=== PATIENT | female | born 1970 | race Caucasian/White ===

== ENCOUNTER → 2023-09-18 07:24 | Outpatient (BNVA) | payer OTHER, SELFPAY | PROVIDERS: Visit Provider Internal Medicine Gastroenterology ==

== ENCOUNTER 2023-11-15 09:46 | Outpatient (REF) | payer OTHER, SELFPAY ==
--- NOTE | ~2023-11-15 | FL_ITS ---
EXAMINATION: XR FLUOROSCOPY BARIUM SWALLOW WITH AIR CLINICAL INFORMATION: Reflux. Epigastric pain. COMPARISON: None TECHNIQUE: Fluoroscopic air contrast barium swallow examination was performed utilizing standard techniques with thin and thick barium and effervescent granules. Numerous spot images were obtained. FINDINGS: Lateral cine images of the oropharynx and hypopharynx demonstrate normal swallow mechanism with normal epiglottic inversion and soft palate elevation. There was trace tracheal penetration. No glottic or subglottic aspiration identified. No nasopharyngeal reflux present. Hypopharyngeal structures appear normal without evidence of mass or diverticulum. There was no significant cricopharyngeal achalasia. Dual and single contrast images of the esophagus demonstrate normal caliber, contour. Granular mucosal pattern present in the distal one third to one half of the esophagus. This may suggest erosive esophagitis. No evidence of stricture, mass, or large ulcerations identified. Esophageal peristalsis is moderately disorganized. A small type I hiatal hernia is present. Significant gastroesophageal reflux is seen up to the thoracic inlet. Dual contrast and single contrast images of the stomach demonstrated a normal contour. The gastric rugal folds have a thickened appearance. No masses or ulcerations are seen. Contrast freely passed into the gastric antrum and duodenal bulb without delay. Single and air-contrast images of the duodenal bulb demonstrate no abnormality. The duodenal sweep has a normal appearance, course, and mucosal fold appearance. No malrotation. The imaged proximal jejunum has a normal fold pattern and caliber. FLUOROSCOPY TIME: 5.0 minutes Number of Spot Images: 11 Number of Cine: 16 DOSE AREA PRODUCT: 2242 uGy-m2 (microgray-meter squared) FL/FL barium swallow with air IMPRESSION: 1. Small type I hiatal hernia. 2. Moderate to severe esophageal reflux. 3. Granular mucosa of the distal esophagus, query mild reflux esophagitis. 4. Esophageal dysmotility. 5. Trace laryngeal penetration. No aspiration identified. 6. Thickened appearance of the gastric rugal folds that likely represents gastritis. This procedure was performed by Juan Perry PA-C, and supervised by Dr. Hutchison
== END 2023-11-15 09:47 | disposition home or self-care (01) ==
LOC: HO.XRAY 09:46
PROVIDERS: Visit Provider Internal Medicine Gastroenterology
DX: R07.9 Chest pain, unspecified (principal)
CPT/HCPCS: 74221

== ENCOUNTER → 2023-11-15 09:48 | Outpatient (BNV) | payer OTHER, SELFPAY | PROVIDERS: Visit Provider Physician Assistant Surgical | DX: K21.9 Gastro-esophageal reflux disease without esophagitis (principal); R10.13 Epigastric pain | CPT/HCPCS: 74246 ==

== ENCOUNTER 2023-11-30 13:26 | Outpatient (AMB) | payer OTHER, SELFPAY ==
--- NOTE | 2023-11-30 13:30 | MHC.OFFVIS ---
Vital Signs 11/30/23 13:43 Height 5 ft 2 in Weight 129 lb BMI 23.6 BP 105/64 Blood Pressure Location Lt brachial Position Sitting Pulse 71 Intake Visit Reasons: Barium Swallow results Intake Note: Patient follow up for Barium Swallow results Patient cc: abdominal pain and some swallowing problems with solid and liquid, ansd constipation. Manager Clinical Research Required: No Accompanied by: Spouse Allergies No Known Allergies Allergy (Verified 11/30/23 13:37) Medication List - Last Reconciled 11/30/23 by Jayesh Kaminski MD albuterol sulfate 90 mcg/actuation (Ventolin HFA) inhalation atorvastatin 20 mg PO DAILY cholecalciferol (vitamin D3) 1,250 mcg PO QWEEK estradiol 0.01%(0.1mg/gram) 1 appful vaginal DAILY famotidine 20 mg PO BID 30 days fluticasone prp-sod.chl,bicarb 50 mcg- 0.9 % sprays intranasal .twice a day levothyroxine 75 mcg PO DAILY multivitamin 1 tab PO DAILY sennosides-docusate sodium 8.6-50 mg (Senna Plus) 1 tab-cap PO BEDTIME 30 days HPI HPI Barium Swallow results: Details: FU GI clinic visit for this 53 YF for evaluation of chest pain and constipation. Pt is referred by Dr Gladys Daigle, [facility], [facility], [address], 3rd floor, [facility] [address] ([phone]) LABS IN [facility]: Outside labs from 02/2022 were reviewed - Normal CBC, Chem Panel and elevated TSH 9.17 with normal Free T4 IMAGING STUDIES: 11/15/23 BARIUM SWALLOW SHOWED: 1. Small type I hiatal hernia. 2. Moderate to severe esophageal reflux. 3. Granular mucosa of the distal esophagus, query mild reflux esophagitis. 4. Esophageal dysmotility. 5. Trace laryngeal penetration. No aspiration identified. 6. Thickened appearance of the gastric rugal folds that likely represents gastritis. ENDOSCOPIC STUDIES: Never had an EGD, Colonoscopy at [facility] in 2019 TODAY'S VISIT: Silvano presents in the office as a new patient for constipation and chest pains. CC: Pains in the chest, not sure if it is acid reflux. She takes omeprazole and it seems to help her. Pt is accompanied by her She has been taking Omeprazole 20 mg twice a day for the past few days with some improvement in symptoms Famotidine was not helpful and she stopped taking it. Pt complains of intermittent chest pain - sometimes daily. Pain feels like pressure - sometimes associated with nausea Denies association of chest pain with exertion or association with SOB, dizziness or palpitations Denies association with specific foods. Pain can last for hours and resolves Tried Omeprazole once a day for a month without improvement in symptoms Intermittent dysphagia with solids and liquids in the cervical area - resolves with drinking water. Chronic constipation x years. Has a BM every other day - hard stools with straining. Intermittent rectal bleeding - attributes to hemorrhoids Colonoscopy at [facility] in 2019. Patient denies heartburn, change in appetite or weight. Patient denies major cardiac or pulmonary problems, loud snoring or sleep apnea Denies problems with anesthesia in the past. Denies being on chronic anticoagulation. Patient denies known family history of colon polyps, colon cancer or other GI malignancies. Brother has GERD. and has 3 children Originally from [facility] Surgical History Hx of colonoscopy Social History (Updated 11/30/23 @ 13:38 by Ann Donald) Household Members: Family Alcohol intake: never Patient Tobacco Use Status: Never used Tobacco Review of Systems Const All systems reviewed & are unremarkable except as noted in HPI and below Physical Exam Vital Signs: Last Vital Signs Pulse 71 11/30/23 13:43 BP 105/64 11/30/23 13:43 BMI result Body Mass Index 23.6 Const General: healthy appearing and no acute distress Nutritional Appearance: average body habitus Orientation/consciousness: patient oriented x3 Limitations: language barrier HEENT Head: Yes normal to inspection Ears: hearing grossly normal bilaterally Eyes Sclerae: sclerae normal Pupils: Equal, round and reactive pupils present Neck Neck: Yes normal visual inspection Chest Chest palpation & inspection: normal inspection of the chest Resp Effort & Inspection: normal respiratory effort Auscultation: clear to auscultation bilaterally Cardio Palpation: normal PMI Rate: regular rate Rhythm: regular rhythm Heart sounds: S1 normal heart sound present, S2 normal heart sound present and no murmurs GI Palpation (GI): Soft to palpation, nontender and No hepatosplenomegaly present Auscultation: normal bowel sounds Rectal Exam - Female: deferred Skin General skin exam: no rashes or lesions noted Neuro General: patient oriented x3, gait normal and moves all extremities Cranial nerves: Yes Equal, round and reactive pupils present Psych Appearance: grossly normal Mental Status: mental status grossly normal Assessment & Plan Assessment & Plan (1) Chest pain: Code(s): R07.9 - Chest pain, unspecified Category: Medical (2) Chronic constipation: Code(s): K59.09 - Other constipation Category: Medical Plan 53 YF with intermittent chest pain - sometimes daily. Tried Omeprazole once a day for a month without improvement in symptoms Intermittent dysphagia with solids and liquids in the cervical area - resolves with drinking water. Chronic constipation x years. Has a BM every other day - hard stools with straining. Intermittent rectal bleeding - attributes to hemorrhoids Colonoscopy at [facility] in 2019. Chest pain is likely due to GERD with esophageal spasm Pt advised to schedule a barium swallow Start Famotidine for GERD and Senna plus for constipation Pt advised to schedule an urgent EGD due to persistent symptoms associated with wt loss Colonoscopy scheduled on 12/25/23 FU in 6 week Medications: Changed From sennosides-docusate sodium 8.6-50 mg (Senna Plus) 1 tab-cap PO BEDTIME 30 days 30 caps 3RF K59.09 - Other constipation To sennosides-docusate sodium 8.6-50 mg (Senna Plus) 2 tab-caps (2 x 8.6-50 mg) PO BEDTIME 30 days 60 caps 3RF K59.09 - Other constipation Coding Level of Care Code Est Pt Level 3 (54247) Diagnoses Chest pain R07.9 Chronic constipation K59.09 Time Spent (min) 18
[2023-11-30 13:43] VITALS: BP 105/64; PULSE 71; BMI 23.6
== END 2023-11-30 14:59 | disposition home or self-care (01) ==
PROVIDERS: PCP Internal Medicine; Visit Provider Internal Medicine Gastroenterology
DX: R07.9 Chest pain, unspecified (principal); K59.09 Other constipation
CPT/HCPCS: 99213

== ENCOUNTER → 2023-11-30 13:26 | Outpatient (BNVA) | payer OTHER, SELFPAY | PROVIDERS: Visit Provider Internal Medicine Gastroenterology | DX: K59.09 Other constipation (principal); R07.9 Chest pain, unspecified | CPT/HCPCS: 99212 ==

== ENCOUNTER 2023-12-04 14:14 | Day surgery (SDC) | payer OTHER, SELFPAY ==
--- NOTE | 2023-12-01 10:43 | HO.ANESPROP2 ---
Documented by User: Dariela Chance NP 12/01/23 10:50 HPI - Anesthesia Eval Consult details Narrative: 53yo F for Upper Endoscopy PMF Active Problems Active Problems: All Active Problems Thyroid disease (Acute) Asthma (Acute) Chronic constipation (Acute) Chest pain (Acute) Low back pain (Acute) Surgical History Surgical History Hx of colonoscopy Social History Social History (Updated 11/30/23 @ 13:38 by Ann Donald) Household Members: Family Alcohol intake: never Patient Tobacco Use Status: Never used Tobacco Use of substances other than those prescribed or required for medical reasons: No Are you DNR?: No Advance Directives: No Advance Directives Information Provided: Yes Meds Allergies Allergy/AdvReac Type Severity Reaction Status Date / Time No Known Allergies Allergy Verified 11/30/23 13:37 Home Medications ?Medication ?Instructions ?Recorded ?Confirmed ?Last Taken ?Type albuterol sulfate 90 mcg/actuation inhalation 09/18/23 11/30/23 Unknown History aerosol inhaler (Ventolin HFA) atorvastatin 20 mg tablet 20 mg PO DAILY 09/18/23 11/30/23 Unknown History cholecalciferol (vitamin D3) 1,250 1,250 mcg PO QWEEK 09/18/23 11/30/23 Unknown History mcg (50,000 unit) capsule estradiol 0.01% (0.1 mg/gram) 1 appful vaginal DAILY 09/18/23 11/30/23 Unknown History vaginal cream fluticasone prop.50 mcg spray intranasal .twice a day 09/18/23 11/30/23 Unknown History spray,suspen-sod.chloride 0.9% nasal spray kit levothyroxine 75 mcg capsule 75 mcg PO DAILY 09/18/23 11/30/23 Unknown History multivitamin 1 tab PO DAILY 09/18/23 11/30/23 Unknown History Assessment and Plan Assessment Anesthesia Assessment: Chart Reviewed Documented by User: Michelle Martinez MD 12/04/23 15:14 PMFSH Family History Family history of problems with anesthesia: No Surgical History Surgical History Hx of colonoscopy History of Problems with Anesthesia: No Social History Social History (Updated 11/30/23 @ 13:38 by Ann Donald) Household Members: Family Alcohol intake: never Patient Tobacco Use Status: Never used Tobacco Use of substances other than those prescribed or required for medical reasons: No Are you DNR?: No Advance Directives: No Advance Directives Information Provided: Yes Meds Allergies Allergy/AdvReac Type Severity Reaction Status Date / Time No Known Allergies Allergy Verified 11/30/23 13:37 Home Medications ?Medication ?Instructions ?Recorded ?Confirmed ?Last Taken ?Type albuterol sulfate 90 mcg/actuation inhalation 09/18/23 11/30/23 Unknown History aerosol inhaler (Ventolin HFA) atorvastatin 20 mg tablet 20 mg PO DAILY 09/18/23 11/30/23 Unknown History cholecalciferol (vitamin D3) 1,250 1,250 mcg PO QWEEK 09/18/23 11/30/23 Unknown History mcg (50,000 unit) capsule estradiol 0.01% (0.1 mg/gram) 1 appful vaginal DAILY 09/18/23 11/30/23 Unknown History vaginal cream fluticasone prop.50 mcg spray intranasal .twice a day 09/18/23 11/30/23 Unknown History spray,suspen-sod.chloride 0.9% nasal spray kit levothyroxine 75 mcg capsule 75 mcg PO DAILY 09/18/23 11/30/23 Unknown History multivitamin 1 tab PO DAILY 09/18/23 11/30/23 Unknown History Exam Airway Mallampati Class: II TM Dist: >3cm Neck ROM: Full Heart: rrr Lungs: cta Assessment and Plan Assessment Anesthesia Assessment: Anesthesia Plan Discussed Final Anesthetic Review Family History of Problems with Anesthesia: No History of Problems with Anesthesia: No NPO: Yes ASA Class: II Final Preanesthetic Review: No Changes in Pt Med Stat, Meds/Allgs Chart Reviewed and Consent Obtained/Reviewed Patient Risk: Low Procedure Risk: Intermediate Anesthetic Plan Anesthetic Plan: MAC: Disposition: Standard PACU
[2023-12-04 14:23] VITALS: BP 120/79; PULSE 70; RESP 16; TEMP 36.4; O2SAT 99; BMI 24.1
[2023-12-04] MEDS: Lactated Ringers 1,000 ML 100 ML IVCONT (14:37)
--- NOTE | 2023-12-04 15:10 | MHC.SHP ---
Pre-Procedural Eval Section A - 24 Hr Update-Section A only Date of Service: 12/04/23 The patient is an INPATIENT: No Changes since office visit: Yes Patient answered all questions; No Cold of Flu in the past 2 weeks, No New Medical Problems and No Changes in Medication The patient has been examined within 24 hours of the surgical procedure. The History & Physical has been completed within 30 days and I have reviewed it.: Yes Section B - Complete if H&P > 30 days Chief Complaint: Anemia, unspecified Allergies: Allergies Allergy/AdvReac Type Severity Reaction Status Date / Time No Known Allergies Allergy Verified 11/30/23 13:37 Plan Diagnosis/Plan: Change (Proceed with EGD) I have reviewed the history and physical and performed a pertinent physical examination on my patient. No changes have occurred unless specified. Time Spent With Patient Time: Total time managing care of this patient today ____ minutes.
--- NOTE | 2023-12-04 15:47 | W.PM.OPN ---
Operative Note Operative Note Date of Service: 12/04/23 Narrative: FLEXIBLE TRANSORAL UPPER GASTROINTESTINAL ENDOSCOPY WITH BIOPSIES Pre-op diagnosis: GERD, weight loss and abnormal barium swallow Post-op diagnosis: GERD, Gastritis, duodenal bulb nodules Endoscopist:? Jayesh Kaminski MD Anesthesia:?MAC UPPER ENDOSCOPY Consent: Indications for the procedure and potential complications of bleeding, perforation, reaction to medications and missed diagnosis were discussed with the patient and informed consent was obtained. Instrument: Olympus GIF H 190 mid size upper endoscope Monitoring: Vital signs and clinical assessment, continuous EKG monitoring, Pulse oximetry, Carbon Dioxide monitoring and blood pressure monitoring were done throughout the procedure. Procedure: The patient was placed in the left lateral decubitis position and pre-procedure medications were administered and a bite block was placed. The endoscope was inserted into the mouth and advanced under direct vision to the third part of duodenum. A careful inspection was made as the upper endoscope was withdrawn including a retroflexed examination of the proximal stomach; Findings and interventions are described below. 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 Small hiatal hernia 35 to 36 cms. Minimal esophagitis at GE junction and no Alfaro's Stomach: Moderate diffuse gastric erythema - biopsies were obtained from the gastric body and antrum. Grade 2 flap valve on retroflexed examination of the cardia. Duodenum: Multiple 3-4 mm nodules in the roof of proximal bulb - biopsied. Normal mucosa in the descending duodenum - biopsies were obtained to check for celiac sprue. Prominent duodenal papilla - biopsies obtained from the base of the papilla Intervention: Biopsies as noted above Impression and Post Procedure Diagnosis: Endoscopy Findings: ESOPHAGUS: Small hiatal hernia with minimal esophagitis at GE junction STOMACH: Moderate diffuse gastritis - biopsies obtained from the gastric antrum and body.. DUODENUM: Multiple 3-4 mm nodules in the roof of proximal bulb - likely hyperplasia of Portia's glands. Prominent duodenal papilla - biopsied. Normal mucosa in the descending duodenum - biopsies were obtained to check for celiac sprue. Plan: Pt has a FU appointment on 01/18/[address] Kaminski. Above findings were reviewed with the patient and relevant handouts were given and the discharge area. BIOPSIES SHOWED: A. Small bowel, biopsy: Small intestinal mucosa within normal limits; negative for celiac disease. B. Duodenum, papilla, biopsy: Mixed small intestinal and foveolar mucosa with smooth muscle, consistent with papilla sampling; negative for dysplasia or malignancy. C. 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 D. Stomach, antrum, biopsy: Antral-type mucosa with moderate chronic inactive inflammation; no Helicobacter organisms seen. E. Stomach, body, biopsy: Oxyntic mucosa with mild chronic inactive inflammation; no Helicobacter organisms seen.
[2023-12-04 15:51] VITALS: BP 99/62; PULSE 67; RESP 16; TEMP 36.2; O2SAT 100
[2023-12-04 16:06] VITALS: BP 117/84; PULSE 56; RESP 16; TEMP 37.1; O2SAT 96
== END 2023-12-04 16:45 | disposition home or self-care (01) ==
PROVIDERS: Visit Provider Internal Medicine Gastroenterology
PROC: 0DJ08ZZ Inspection of Upper Intestinal Tract, Via Natural or Artificial Opening Endoscopic (ICD-10-PCS; CPT 43235; principal; 2023-12-04 15:40)
DX: K21.00 Gastro-esophageal reflux disease with esophagitis, without bleeding (principal); R63.4 Abnormal weight loss; K29.70 Gastritis, unspecified, without bleeding; K44.9 Diaphragmatic hernia without obstruction or gangrene; K31.89 Other diseases of stomach and duodenum
CPT/HCPCS: 43239; 88305; 88313; 88342; J2704

== ENCOUNTER 2023-12-25 08:23 | Day surgery (SDC) | payer OTHER, SELFPAY ==
--- NOTE | 2023-12-22 09:53 | HO.ANESPROP2 ---
Documented by User: Dariela Chance NP 12/22/23 09:54 HPI - Anesthesia Eval Consult details Narrative: 53yo F for Colonoscopy s/p EGD 11/2023 with [facility] PMFSH Active Problems Active Problems: All Active Problems Thyroid disease (Acute) Asthma (Acute) Chronic constipation (Acute) Chest pain (Acute) Low back pain (Acute) Past Medical History Medical History (Updated 12/25/23 @ 09:59 by Thuy Vega RN) Asthma Hypothyroid Family History Family history of problems with anesthesia: No Surgical History Surgical History (Updated 12/25/23 @ 09:58 by Thuy Vega RN) Hx of esophagogastroduodenoscopy Hx of colonoscopy History of Problems with Anesthesia: No Social History Social History (Updated 11/30/23 @ 13:38 by Ann Donald) Household Members: Family Alcohol intake: never Patient Tobacco Use Status: Never used Tobacco Are you DNR?: No Advance Directives: No Advance Directives Information Provided: Yes Nutrition Risks: No Nutritional Risk Meds Allergies Allergy/AdvReac Type Severity Reaction Status Date / Time No Known Allergies Allergy Verified 12/25/23 09:58 Home Medications ?Medication ?Instructions ?Recorded ?Confirmed ?Last Taken ?Type albuterol sulfate 90 mcg/actuation inhalation 09/18/23 11/30/23 Unknown History aerosol inhaler (Ventolin HFA) atorvastatin 20 mg tablet 20 mg PO DAILY 09/18/23 11/30/23 Unknown History cholecalciferol (vitamin D3) 1,250 1,250 mcg PO QWEEK 09/18/23 11/30/23 Unknown History mcg (50,000 unit) capsule estradiol 0.01% (0.1 mg/gram) 1 appful vaginal DAILY 09/18/23 11/30/23 Unknown History vaginal cream fluticasone prop.50 mcg spray intranasal .twice a day 09/18/23 11/30/23 Unknown History spray,suspen-sod.chloride 0.9% nasal spray kit levothyroxine 75 mcg capsule 75 mcg PO DAILY 09/18/23 11/30/23 Unknown History multivitamin 1 tab PO DAILY 09/18/23 11/30/23 Unknown History Assessment and Plan Assessment Anesthesia Assessment: Chart Reviewed Final Anesthetic Review Family History of Problems with Anesthesia: No History of Problems with Anesthesia: No Documented by User: Michelle Martinez MD 12/25/23 10:19 PMF Past Medical History Medical History (Updated 12/25/23 @ 09:59 by Thuy Vega, RN) Asthma Hypothyroid Surgical History Surgical History (Updated 12/25/23 @ 09:58 by Thuy Vega RN) Hx of esophagogastroduodenoscopy Hx of colonoscopy Social History Social History (Updated 11/30/23 @ 13:38 by Ann Donald) Household Members: Family Alcohol intake: never Patient Tobacco Use Status: Never used Tobacco Are you DNR?: No Advance Directives: No Advance Directives Information Provided: Yes Nutrition Risks: No Nutritional Risk Meds Allergies Allergy/AdvReac Type Severity Reaction Status Date / Time No Known Allergies Allergy Verified 12/25/23 09:58 Home Medications ?Medication ?Instructions ?Recorded ?Confirmed ?Last Taken ?Type albuterol sulfate 90 mcg/actuation inhalation 09/18/23 11/30/23 Unknown History aerosol inhaler (Ventolin HFA) atorvastatin 20 mg tablet 20 mg PO DAILY 09/18/23 11/30/23 Unknown History cholecalciferol (vitamin D3) 1,250 1,250 mcg PO QWEEK 09/18/23 11/30/23 Unknown History mcg (50,000 unit) capsule estradiol 0.01% (0.1 mg/gram) 1 appful vaginal DAILY 09/18/23 11/30/23 Unknown History vaginal cream fluticasone prop.50 mcg spray intranasal .twice a day 09/18/23 11/30/23 Unknown History spray,suspen-sod.chloride 0.9% nasal spray kit levothyroxine 75 mcg capsule 75 mcg PO DAILY 09/18/23 11/30/23 Unknown History multivitamin 1 tab PO DAILY 09/18/23 11/30/23 Unknown History Exam Airway Mallampati Class: II (missing one tooth) TM Dist: >3cm Neck ROM: Full Heart: rrr Lungs: cta Assessment and Plan Assessment Anesthesia Assessment: Anesthesia Plan Discussed Final Anesthetic Review NPO: Yes ASA Class: II Final Preanesthetic Review: No Changes in Pt Med Stat, Meds/Allgs Chart Reviewed and Consent Obtained/Reviewed Patient Risk: Low Procedure Risk: Low Anesthetic Plan Anesthetic Plan: MAC: Disposition: Standard PACU
--- NOTE | 2023-12-25 09:25 | MHC.SHP ---
Pre-Procedural Eval Section A - 24 Hr Update-Section A only Date of Service: 12/25/23 The patient is an INPATIENT: No Changes since office visit: Yes Patient answered all questions; No Cold of Flu in the past 2 weeks, No New Medical Problems and No Changes in Medication The patient has been examined within 24 hours of the surgical procedure. The History & Physical has been completed within 30 days and I have reviewed it.: Yes Section B - Complete if H&P > 30 days Chief Complaint: Surveillance of colon polyps Allergies: Allergies Allergy/AdvReac Type Severity Reaction Status Date / Time No Known Allergies Allergy Verified 11/30/23 13:37 Plan Diagnosis/Plan: Change (proceed with colonoscopy) I have reviewed the history and physical and performed a pertinent physical examination on my patient. No changes have occurred unless specified. Time Spent With Patient Time: Total time managing care of this patient today ____ minutes.
[2023-12-25 09:56] VITALS: BMI 23.6
[2023-12-25] MEDS: Lactated Ringers 1,000 ML 100 ML IVCONT (10:03)
[2023-12-25 10:11] VITALS: BP 108/48; PULSE 68; RESP 18; TEMP 36.7; O2SAT 98
[2023-12-25 11:38] VITALS: BP 97/48; PULSE 67; RESP 16; TEMP 36.4; O2SAT 100
--- NOTE | 2023-12-25 11:43 | HO.OPN-COLON ---
Colonoscopy Operative Note Operative Note Date of Service: 12/25/23 Narrative: COLONOSCOPY TILL CECUM WITH SNARE POLYPECTOMY, SUBMUCOSAL INJECTION AND HEMOCLIP PLACEMENT Pre-op diagnosis: Surveillance of colon polyps. Post-op diagnosis:? Colon polyps, Diverticulosis, hemorrhoids Endoscopist:? Jayesh Kaminski MD Anesthesia:?MAC Consent: Indications for the procedure and potential complications of bleeding, perforation, reaction to medications and missed diagnosis were discussed with the patient and informed consent was obtained. Instrument: Olympus PCF H 190 L variable stiffness pediatric colonoscope Monitoring: Vital signs and clinical assessment, intermittent blood pressure monitoring, continuous EKG monitoring, Pulse oximetry and Carbon Dioxide monitoring were done throughout the procedure. Please see anesthesia flowsheet. Colon withdrawl time was 32 minutes. Procedure: The patient was placed in the left lateral decubitis position and pre-procedure medications were administered. After a digital rectal examination of the ano-rectum, the video colonoscope was inserted into the rectum and advanced through the colon to the cecum. The colonoscope was slowly withdrawn in a retrograde panoramic fashion and the colon mucosa was carefully examined including a retroflexed view of the rectum. Findings and interventions are described below. Procedure Difficulty: Colon was long and there was some loop formation Findings: Terminal Ileum: Not evaluated Cecum: Normal Ascending Colon: A 12-15 mm flat polyp just distal to ICV at 80 cms - raised with 4 cc of Eleview. Polyp was removed with a stiff hot snare. Polypectomy site was treated with cautery using the snare tip. Polypectomy site was closed with 2 hemoclips and marked by Ernestina ink. A 6-7 mm sessile polyp in the proximal AC - removed with a cold snare Transverse Colon: Normal Descending Colon: Normal Sigmoid Colon: Moderate diverticulosis Rectum: A 7-8 mm sessile polyp - removed with a hot snare Ano-rectum: Moderate internal hemorrhoids Colon preparation: Good after some irrigation. [place] Bowel Preparation Scale Right colon; 2 Transverse colon: 2 Left colon; 2 (0 = Unprepared colon segment with mucosa not seen due to solid stool that cannot be cleared. 1 = Portion of mucosa of the colon segment seen, but other areas of the colon segment not well seen due to staining, residual stool and/or opaque liquid. 2 = Minor amount of residual staining, small fragments of stool and/or opaque liquid, but mucosa of colon segment seen well. 3 = Entire mucosa of colon segment seen well with no residual staining, small fragments of stool or opaque liquid) Impression and Post Procedure Diagnosis: Colonoscopy Findings: Two small and one medium sized polyps were removed Moderate diverticulosis seen in the sigmoid colon Moderate hemorrhoids on retroflexed exam. Plan: Pt has a FU appointment on 01/18/[address] Kaminski Repeat Colonoscopy in 3 years if polyps are adenomatous and 5 years if polyps are hyperplastic (due to a history of adenomatous colon polyps). Above findings were reviewed with the patient and relevant handouts were given and the discharge area. BIOPSIES SHOWED: A. Colon, ascending at 80 cm, polypectomy: Fragments of sessile serrated lesion/polyp; negative for cytologic dysplasia. B. Colon, ascending, polypectomy: Tubular adenoma; negative for high-grade dysplasia or carcinoma. C. Rectum, polypectomy: Fragments of tubular adenoma; negative for high-grade dysplasia or carcinoma.
[2023-12-25 11:53] VITALS: BP 104/65; PULSE 60; RESP 16; TEMP 36.6; O2SAT 100
== END 2023-12-25 12:44 | disposition home or self-care (01) ==
PROVIDERS: Visit Provider Internal Medicine Gastroenterology
PROC: 0DJD8ZZ Inspection of Lower Intestinal Tract, Via Natural or Artificial Opening Endoscopic (ICD-10-PCS; CPT 45378; principal; 2023-12-25 10:10)
DX: Z12.11 Encounter for screening for malignant neoplasm of colon (principal); D12.4 Benign neoplasm of descending colon; D12.2 Benign neoplasm of ascending colon; D12.8 Benign neoplasm of rectum; K57.30 Diverticulosis of large intestine without perforation or abscess without bleeding; K56.2 Volvulus; K64.8 Other hemorrhoids; J45.909 Unspecified asthma, uncomplicated; Z79.899 Other long term (current) drug therapy
CPT/HCPCS: 45381; 45385; 88305; J2704

== ENCOUNTER → 2023-12-25 08:23 | Outpatient (BNV) | payer OTHER, SELFPAY | PROVIDERS: Visit Provider Internal Medicine Gastroenterology | DX: Z12.11 Encounter for screening for malignant neoplasm of colon (principal); Z86.010 Personal history of colon polyps; D12.2 Benign neoplasm of ascending colon; D12.8 Benign neoplasm of rectum | CPT/HCPCS: 45381; 45385 ==

== ENCOUNTER 2024-01-18 13:41 | Outpatient (AMB) | payer OTHER, SELFPAY ==
--- NOTE | 2024-01-18 13:50 | MHC.OFFVIS ---
Vital Signs 01/18/24 14:09 Height 5 ft 2 in Weight 127 lb BMI 23.2 BP 111/73 Blood Pressure Location Lt brachial Position Sitting Pulse 67 Intake Visit Reasons: Colonoscopy results Intake Note: Silvano presents in the office as a colonoscopy follow up. Patient cc: N/V, abdominal pain/bloating, acid reflex with burning sensation, constipation, swallowing difficulty with solid and liquid. Allergies No Known Allergies Allergy (Verified 05/01/25 11:14) Medication List - Last Reconciled 01/18/24 by Jayesh Kaminski MD albuterol sulfate 90 mcg/actuation (Ventolin HFA) inhalation atorvastatin 20 mg PO DAILY cholecalciferol (vitamin D3) 1,250 mcg PO QWEEK estradiol 0.01%(0.1mg/gram) 1 appful vaginal DAILY fluticasone prp-sod.chl,bicarb 50 mcg- 0.9 % sprays intranasal .twice a day levothyroxine 75 mcg PO DAILY multivitamin 1 tab PO DAILY Nexium (esomeprazole magnesium) 20 mg PO DAILY 90 days NS ondansetron 4 mg PO Q8H PRN 30 days sennosides-docusate sodium 8.6-50 mg (Senna Plus) 2 tab-caps (2 x 8.6-50 mg) PO BEDTIME 30 days HPI HPI Colonoscopy results: Details: FU GI clinic visit for this 53 YF for evaluation of chest pain and constipation and discuss EGD and colon results. Pt was referred by Dr Gladys Daigle, [facility], [facility], [address], 3[address], [facility] [address] ([phone]) LABS IN [facility]: Outside labs from 02/2022 were reviewed - Normal CBC, Chem Panel and elevated TSH 9.17 with normal Free T4 IMAGING STUDIES: 11/15/23 BARIUM SWALLOW SHOWED: 1. Small type I hiatal hernia. 2. Moderate to severe esophageal reflux. 3. Granular mucosa of the distal esophagus, query mild reflux esophagitis. 4. Esophageal dysmotility. 5. Trace laryngeal penetration. No aspiration identified. 6. Thickened appearance of the gastric rugal folds that likely represents gastritis. ENDOSCOPIC STUDIES: 12/25/23 COLONOSCOPY SHOWED: Two small and one medium sized polyps were removed Moderate diverticulosis seen in the sigmoid colon Moderate hemorrhoids on retroflexed exam. Plan: Repeat Colonoscopy in 3 years if polyps are adenomatous and 5 years if polyps are hyperplastic (due to a history of adenomatous colon polyps). Above findings were reviewed with the patient and relevant handouts were given and the discharge area. BIOPSIES SHOWED: A. Colon, ascending at 80 cm, polypectomy: Fragments of sessile serrated lesion/polyp; negative for cytologic dysplasia. B. Colon, ascending, polypectomy: Tubular adenoma; negative for high-grade dysplasia or carcinoma. C. Rectum, polypectomy: Fragments of tubular adenoma; negative for high-grade dysplasia or carcinoma. 12/04/23 EGD SHOWED: ESOPHAGUS: Small hiatal hernia with minimal esophagitis at GE junction STOMACH: Moderate diffuse gastritis - biopsies obtained from the gastric antrum and body.. DUODENUM: Multiple 3-4 mm nodules in the roof of proximal bulb - likely hyperplasia of Portia's glands. Prominent duodenal papilla - biopsied. Normal mucosa in the descending duodenum - biopsies were obtained to check for celiac sprue. Plan: Above findings were reviewed with the patient and relevant handouts were given and the discharge area. BIOPSIES SHOWED: A. Small bowel, biopsy: Small intestinal mucosa within normal limits; negative for celiac disease. B. Duodenum, papilla, biopsy: Mixed small intestinal and foveolar mucosa with smooth muscle, consistent with papilla sampling; negative for dysplasia or malignancy. C. 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 D. Stomach, antrum, biopsy: Antral-type mucosa with moderate chronic inactive inflammation; no Helicobacter organisms seen. E. Stomach, body, biopsy: Oxyntic mucosa with mild chronic inactive inflammation; no Helicobacter organisms seen. Never had an EGD, Colonoscopy at [facility] in 2019 TODAY'S VISIT: Patient reports N/V, abdominal pain/bloating, acid reflex with burning sensation, constipation, swallowing difficulty with solid and liquid. Denies any problems after the colonoscopy. Has been taking Esomeprazole 40 mg once a day with partial relief of symptoms. Also has episodes of nausea and vomiting despite taking antiemetics Pt is accompanied by her She has been taking Omeprazole 20 mg twice a day for the past few days with some improvement in symptoms Famotidine was not helpful and she stopped taking it. PAST VISITS: Silvano presents in the office as a new patient for constipation and chest pains. CC: Pains in the chest, not sure if it is acid reflux. She takes omeprazole and it seems to help her. Pt complains of intermittent chest pain - sometimes daily. Pain feels like pressure - sometimes associated with nausea Denies association of chest pain with exertion or association with SOB, dizziness or palpitations Denies association with specific foods. Pain can last for hours and resolves Tried Omeprazole once a day for a month without improvement in symptoms Intermittent dysphagia with solids and liquids in the cervical area - resolves with drinking water. Chronic constipation x years. Has a BM every other day - hard stools with straining. Intermittent rectal bleeding - attributes to hemorrhoids Colonoscopy at [facility] in 2019. Patient denies heartburn, change in appetite or weight. Patient denies major cardiac or pulmonary problems, loud snoring or sleep apnea Denies problems with anesthesia in the past. Denies being on chronic anticoagulation. Patient denies known family history of colon polyps, colon cancer or other GI malignancies. Brother has GERD. and has 3 children Originally from [facility] Medical History Asthma Hypothyroid Surgical History History of esophagogastroduodenoscopy (EGD) Hx of colonoscopy Social History Household Members: Family Alcohol intake: never Patient Tobacco Use Status: Never used Tobacco Review of Systems Const All systems reviewed & are unremarkable except as noted in HPI and below Physical Exam Vital Signs: Last Vital Signs Pulse 67 01/18/24 14:09 BP 111/73 01/18/24 14:09 BMI result Body Mass Index 23.2 Const General: healthy appearing and no acute distress Nutritional Appearance: average body habitus Orientation/consciousness: patient oriented x3 Limitations: language barrier HEENT Head: Yes normal to inspection Ears: hearing grossly normal bilaterally Eyes Sclerae: sclerae normal Pupils: Equal, round and reactive pupils present Neck Neck: Yes normal visual inspection Chest Chest palpation & inspection: normal inspection of the chest Resp Effort & Inspection: normal respiratory effort Auscultation: clear to auscultation bilaterally Cardio Palpation: normal PMI Rate: regular rate Rhythm: regular rhythm Heart sounds: S1 normal heart sound present, S2 normal heart sound present and no murmurs GI Palpation (GI): Soft to palpation, nontender and No hepatosplenomegaly present Auscultation: normal bowel sounds Rectal Exam - Female: deferred Skin General skin exam: no rashes or lesions noted Neuro General: patient oriented x3, gait normal and moves all extremities Cranial nerves: Yes Equal, round and reactive pupils present Psych Appearance: grossly normal Mental Status: mental status grossly normal Assessment & Plan Assessment & Plan (1) Chronic constipation: Code(s): K59.09 - Other constipation Category: Medical (2) History of adenomatous polyp of colon: Comment: 12/25/23 COLONOSCOPY SHOWED: Two small and one medium sized adenomatous polyps were removed Plan: Repeat Colonoscopy in 3 years Code(s): Z86.010 - Personal history of colon polyps Category: Medical (3) GERD (gastroesophageal reflux disease): Code(s): K21.9 - Gastro-esophageal reflux disease without esophagitis Category: Medical Plan 53 YF with intermittent chest pain - sometimes daily. Tried Omeprazole once a day for a month without improvement in symptoms Intermittent dysphagia with solids and liquids in the cervical area - resolves with drinking water. Chronic constipation x years. Has a BM every other day - hard stools with straining. Intermittent rectal bleeding - attributes to hemorrhoids Colonoscopy at [facility] in 2019. Chest pain is likely due to GERD with esophageal spasm Pt advised to schedule a barium swallow Start Famotidine for GERD and Senna plus for constipation EGD and Colonoscopy were performed and the results as noted above 01/18/24 Patient reports N/V, abdominal pain/bloating, acid reflex with burning sensation, constipation, swallowing difficulty with solid and liquid. Denies any problems after the colonoscopy. Has been taking Esomeprazole 40 mg once a day with partial relief of symptoms. Also has episodes of nausea and vomiting despite taking antiemetics Pt advised to continie esomeprazole and add sucralfate twice daily Linzess 145 mcg daily for constipation FU in 6 week Orders: Orders Comprehensive Met. Panel 01/25/24 K21.9 - Gastro-esophageal reflux disease without esophagitis, K59.09 - Other constipation TSH reflex Free T4 01/25/24 K21.9 - Gastro-esophageal reflux disease without esophagitis, K59.09 - Other constipation Complete Blood Count Auto Diff 01/25/24 K21.9 - Gastro-esophageal reflux disease without esophagitis, K59.09 - Other constipation Gastrin 01/25/24 K21.9 - Gastro-esophageal reflux disease without esophagitis, K59.09 - Other constipation Medications: New sucralfate (Carafate) 10 mL PO BID 600 mL 1RF 30 days K21.9 - Gastro-esophageal reflux disease without esophagitis esomeprazole magnesium DR (Nexium Packet) 40 mg PO DAILY 30 ea 3RF 30 days K21.9 - Gastro-esophageal reflux disease without esophagitis linaclotide (Linzess) 145 mcg PO QAM 30 caps 3RF 30 days K59.09 - Other constipation Coding Level of Care Code Est Pt Level 3 (78998) Diagnoses Chronic constipation K59.09 History of adenomatous polyp of colon Z86.010 GERD (gastroesophageal reflux disease) K21.9 Time Spent (min) 17
[2024-01-18 14:09] VITALS: BP 111/73; PULSE 67; BMI 23.2
== END 2024-01-18 14:43 | disposition home or self-care (01) ==
PROVIDERS: PCP Internal Medicine; Visit Provider Internal Medicine Gastroenterology
DX: K59.09 Other constipation (principal); K21.9 Gastro-esophageal reflux disease without esophagitis
CPT/HCPCS: 99499

== ENCOUNTER → 2024-01-18 13:41 | Outpatient (BNVA) | payer OTHER, SELFPAY | PROVIDERS: PCP Internal Medicine; Visit Provider Internal Medicine Gastroenterology ==

== ENCOUNTER 2024-01-25 10:37 | Outpatient (REF) | payer OTHER, SELFPAY ==
[2024-01-25 10:51] LABS: MANUAL DIFF FLAG NO
[2024-01-25 11:23] LABS: Basophils Percent Auto 0.7 % (0-2); Eosinophils Absolute Auto 0.2 X10*3/uL (0.0-0.4); Eosinophils Percent Auto 4.1 % (0-4); Hematocrit 41.9 % (37.0-47.0); Hemoglobin 13.7 g/dl (12.0-16.0); Imm Gran Abs Auto 0.01 X10*3/uL (0.00-0.03); Imm Gran Pct Auto 0.2 % (0.0-0.4); Lymphocytes Absolute Auto 2.1 X10*3/uL (1.2-4.9); Lymphocytes Percent Auto 37.3 % (20-40); Mean Corpuscular HGB Conc 32.7 g/dl (31.0-35.0); Mean Corpuscular Volume 88.6 fL (80.0-98.0); Mean Platelet Volume 10.1 fL (9.4-12.3); Monocytes Absolute Auto 0.3 X10*3/uL (0.1-1.2); Monocytes Percent Auto 5.9 % (2-11); Neutrophils Absolute Auto 2.9 x10*3/uL (2.0-8.3); Neutrophils Percent Auto 51.8 % (45-73); Platelet Count 287 X10*3/uL (160-400); Red Blood Count 4.73 X10*6/uL (4.20-5.50); Red Cell Distribution Width 13.9 % (11.0-16.0); White Blood Count 5.6 X10*3/uL (4.8-10.8)
[2024-01-25 12:04] LABS: Alanine Aminotransferase 14 U/L (0-31); Albumin Level 4.5 g/dL (3.5-5.0); Alkaline Phosphatase 64 U/L (39-117); Anion Gap 11 (12-20); Aspartate Amino Transferase 16 U/L (5-31); Bilirubin Total 0.5 mg/dL (0.0-1.0); Blood Urea Nitrogen 11 mg/dL (9-16); Calcium 9.8 mg/dL (8.4-10.2); Carbon Dioxide 33 mmol/L (22-29); Chloride 104 mmol/L (96-108); Estimated Glomerular Filt Rate > 60; Glucose Random 81 mg/dL (60-115); Potassium 4.7 mmol/L (3.3-5.1); Sodium 143 mmol/L (135-145); Total Protein 7.4 g/dL (6.5-8.0)
[2024-01-25 12:22] LABS: TSH reflex Free T4 1.29 uIU/mL (0.32-4.0)
[2024-01-30 22:33] LABS: Gastrin <15 pg/mL (<=100)
== END 2024-01-25 10:38 | disposition home or self-care (01) ==
LOC: HO.LAB 10:37
PROVIDERS: PCP Internal Medicine; Visit Provider Internal Medicine Gastroenterology
DX: K21.9 Gastro-esophageal reflux disease without esophagitis (principal); K59.09 Other constipation
CPT/HCPCS: 36415; 80053; 82941; 84443; 85025

== ENCOUNTER 2024-03-07 09:20 | Outpatient (AMB) | payer OTHER, SELFPAY ==
--- NOTE | 2024-03-07 09:21 | MHC.OFFVIS ---
Vital Signs 03/07/24 09:23 Height 5 ft 2 in Weight 125 lb BMI 22.9 BP 107/70 Blood Pressure Location Lt brachial Position Sitting Pulse 61 Intake Visit Reasons: S/P Double; Dr. Kaminski Intake Note: Patient follow up for constipation Patient cc: N/V on and off, acid reflex with burning sensation, abdominal pain with bloating, constipation , difficulty swallowing, and dizziness come and go. 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 Accompanied by: Self / Same As Patient Allergies No Known Allergies Allergy (Verified 05/01/25 11:14) Medication List - Last Reconciled 03/07/24 by Jayesh Kaminski MD albuterol sulfate 90 mcg/actuation (Ventolin HFA) inhalation atorvastatin 20 mg PO DAILY cholecalciferol (vitamin D3) 1,250 mcg PO QWEEK esomeprazole magnesium DR (Nexium Packet) 40 mg PO DAILY 30 days estradiol 0.01%(0.1mg/gram) 1 appful vaginal DAILY fluticasone prp-sod.chl,bicarb 50 mcg- 0.9 % sprays intranasal .twice a day levothyroxine 75 mcg PO DAILY linaclotide (Linzess) 145 mcg PO QAM 30 days multivitamin 1 tab PO DAILY ondansetron 4 mg PO Q8H PRN 30 days sennosides-docusate sodium 8.6-50 mg (Senna Plus) 2 tab-caps (2 x 8.6-50 mg) PO BEDTIME 30 days sucralfate (Carafate) 10 mL PO BID 30 days HPI HPI S/P Double; Dr. Kaminski: Details: GI clinic visit for this 53 YF for FU evaluation of GERD with atypical chest pain and constipation. Pt was referred by Dr Gladys Daigle, [facility], [facility], [address] 3[address], [facility] [address] ([phone]) LABS IN [employer]: Outside labs from 02/2022 were reviewed - Normal CBC, Chem Panel and elevated TSH 9.17 with normal Free T4 IMAGING STUDIES: 11/15/23 BARIUM SWALLOW SHOWED: 1. Small type I hiatal hernia. 2. Moderate to severe esophageal reflux. 3. Granular mucosa of the distal esophagus, query mild reflux esophagitis. 4. Esophageal dysmotility. 5. Trace laryngeal penetration. No aspiration identified. 6. Thickened appearance of the gastric rugal folds that likely represents gastritis. ENDOSCOPIC STUDIES: 12/25/23 COLONOSCOPY SHOWED: Two small and one medium sized polyps were removed Moderate diverticulosis seen in the sigmoid colon Moderate hemorrhoids on retroflexed exam. Plan: Repeat Colonoscopy in 3 years if polyps are adenomatous and 5 years if polyps are hyperplastic (due to a history of adenomatous colon polyps). Above findings were reviewed with the patient and relevant handouts were given and the discharge area. BIOPSIES SHOWED: A. Colon, ascending at 80 cm, polypectomy: Fragments of sessile serrated lesion/polyp; negative for cytologic dysplasia. B. Colon, ascending, polypectomy: Tubular adenoma; negative for high-grade dysplasia or carcinoma. C. Rectum, polypectomy: Fragments of tubular adenoma; negative for high-grade dysplasia or carcinoma. 12/04/23 EGD SHOWED: ESOPHAGUS: Small hiatal hernia with minimal esophagitis at GE junction STOMACH: Moderate diffuse gastritis - biopsies obtained from the gastric antrum and body.. DUODENUM: Multiple 3-4 mm nodules in the roof of proximal bulb - likely hyperplasia of Portia's glands. Prominent duodenal papilla - biopsied. Normal mucosa in the descending duodenum - biopsies were obtained to check for celiac sprue. Plan: Above findings were reviewed with the patient and relevant handouts were given and the discharge area. BIOPSIES SHOWED: A. Small bowel, biopsy: Small intestinal mucosa within normal limits; negative for celiac disease. B. Duodenum, papilla, biopsy: Mixed small intestinal and foveolar mucosa with smooth muscle, consistent with papilla sampling; negative for dysplasia or malignancy. C. 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 D. Stomach, antrum, biopsy: Antral-type mucosa with moderate chronic inactive inflammation; no Helicobacter organisms seen. E. Stomach, body, biopsy: Oxyntic mucosa with mild chronic inactive inflammation; no Helicobacter organisms seen. TODAY'S VISIT: Patient reports N/V on and off, acid reflex with burning sensation, abdominal pain with bloating, constipation , difficulty swallowing, and dizziness come and go. Denies any change in symptoms Taking Nexium packet 40 mg every morning and Gaviscon prn every other day to every 3 days. Complains of intermittent nausea and reports a good appetite and denies wt loss PAST VISITS: Denies any problems after the colonoscopy. Has been taking Esomeprazole 40 mg once a day with partial relief of symptoms. Also has episodes of nausea and vomiting despite taking antiemetics Pt is accompanied by her She has been taking Omeprazole 20 mg twice a day for the past few days with some improvement in symptoms Famotidine was not helpful and she stopped taking it. PAST VISITS: Patient cc: N/V, abdominal pain/bloating, acid reflex with burning sensation, constipation, swallowing difficulty with solid and liquid. Silvano presents in the office as a new patient for constipation and chest pains. CC: Pains in the chest, not sure if it is acid reflux. She takes omeprazole and it seems to help her. Pt complains of intermittent chest pain - sometimes daily. Pain feels like pressure - sometimes associated with nausea Denies association of chest pain with exertion or association with SOB, dizziness or palpitations Denies association with specific foods. Pain can last for hours and resolves Tried Omeprazole once a day for a month without improvement in symptoms Intermittent dysphagia with solids and liquids in the cervical area - resolves with drinking water. Chronic constipation x years. Has a BM every other day - hard stools with straining. Intermittent rectal bleeding - attributes to hemorrhoids Colonoscopy at [facility] in 2019. Patient denies heartburn, change in appetite or weight. Never had an EGD, Colonoscopy at [facility] in 2019 Patient denies major cardiac or pulmonary problems, loud snoring or sleep apnea Denies problems with anesthesia in the past. Denies being on chronic anticoagulation. Patient denies known family history of colon polyps, colon cancer or other GI malignancies. Brother has GERD. and has 3 children Originally from [facility] Medical History Asthma Hypothyroid Surgical History History of esophagogastroduodenoscopy (EGD) Hx of colonoscopy Social History Household Members: Family Alcohol intake: never Patient Tobacco Use Status: Never used Tobacco Review of Systems Const All systems reviewed & are unremarkable except as noted in HPI and below Physical Exam Vital Signs: Last Vital Signs Pulse 61 03/07/24 09:23 BP 107/70 03/07/24 09:23 BMI result Body Mass Index 22.9 Const General: healthy appearing and no acute distress Nutritional Appearance: average body habitus Orientation/consciousness: patient oriented x3 Limitations: language barrier HEENT Head: Yes normal to inspection Ears: hearing grossly normal bilaterally Eyes Sclerae: sclerae normal Pupils: Equal, round and reactive pupils present Neck Neck: Yes normal visual inspection Chest Chest palpation & inspection: normal inspection of the chest Resp Effort & Inspection: normal respiratory effort Auscultation: clear to auscultation bilaterally Cardio Palpation: normal PMI Rate: regular rate Rhythm: regular rhythm Heart sounds: S1 normal heart sound present, S2 normal heart sound present and no murmurs GI Palpation (GI): Soft to palpation, nontender and No hepatosplenomegaly present Auscultation: normal bowel sounds Rectal Exam - Female: deferred Skin General skin exam: no rashes or lesions noted Neuro General: patient oriented x3, gait normal and moves all extremities Cranial nerves: Yes Equal, round and reactive pupils present Psych Appearance: grossly normal Mental Status: mental status grossly normal Assessment & Plan Assessment & Plan (1) Chronic constipation: Code(s): K59.09 - Other constipation Category: Medical (2) History of adenomatous polyp of colon: Comment: 12/25/23 COLONOSCOPY SHOWED: Two small and one medium sized adenomatous polyps were removed Plan: Repeat Colonoscopy in 3 years Code(s): Z86.010 - Personal history of colon polyps Category: Medical (3) GERD (gastroesophageal reflux disease): Code(s): K21.9 - Gastro-esophageal reflux disease without esophagitis Category: Medical Plan 53 YF with intermittent chest pain - sometimes daily. Tried Omeprazole once a day for a month without improvement in symptoms Intermittent dysphagia with solids and liquids in the cervical area - resolves with drinking water. Chronic constipation x years. Has a BM every other day - hard stools with straining. Intermittent rectal bleeding - attributes to hemorrhoids Colonoscopy at [facility] in 2019. Chest pain is likely due to GERD with esophageal spasm Pt advised to schedule a barium swallow Start Famotidine for GERD and Senna plus for constipation EGD and Colonoscopy were performed and the results as noted above 01/18/24 Patient reports N/V, abdominal pain/bloating, acid reflex with burning sensation, constipation, swallowing difficulty with solid and liquid. Denies any problems after the colonoscopy. Has been taking Esomeprazole 40 mg once a day with partial relief of symptoms. Also has episodes of nausea and vomiting despite taking antiemetics Pt advised to continie esomeprazole and add sucralfate twice daily Linzess 145 mcg daily for constipation 03/07/24 Patient reports N/V on and off, acid reflex with burning sensation, abdominal pain with bloating, constipation , difficulty swallowing, and dizziness come and go. Denies any change in symptoms Taking Nexium packet 40 mg every morning and Gaviscon prn every other day to every 3 days. Complains of intermittent nausea and reports a good appetite and denies wt loss Dicyclomine 10 mg times daily as needed for atypical chest pain. FU in 2 months Medications: New dicyclomine 10 mg PO TID PRN 30 caps 1RF atypical chest pain 30 days R10.13 - Epigastric pain Coding Level of Care Code Est Pt Level 3 (56351) Diagnoses Chronic constipation K59.09 History of adenomatous polyp of colon Z86.010 GERD (gastroesophageal reflux disease) K21.9 Time Spent (min) 17
[2024-03-07 09:23] VITALS: BP 107/70; PULSE 61; BMI 22.9
== END 2024-03-07 10:52 | disposition home or self-care (01) ==
PROVIDERS: Visit Provider Internal Medicine Gastroenterology
DX: K59.09 Other constipation (principal); K21.9 Gastro-esophageal reflux disease without esophagitis
CPT/HCPCS: 99499

== ENCOUNTER → 2024-03-07 09:20 | Outpatient (BNVA) | payer OTHER, SELFPAY | PROVIDERS: Visit Provider Internal Medicine Gastroenterology ==

== ENCOUNTER 2024-05-09 12:14 | Outpatient (AMB) | payer OTHER, SELFPAY ==
--- NOTE | 2024-05-09 12:19 | MHC.OFFVIS ---
Vital Signs 05/09/24 12:22 Height 5 ft 2 in Weight 130 lb 15.273 oz BMI 23.9 BP 124/78 Blood Pressure Location Lt brachial Position Sitting Pulse 64 Pulse Source Pulse Oximeter Pulse Oximetry (%) 99 Oxygen Delivery Method Room Air Intake Visit Reasons: Constipation Intake Note: PRESCRIPTIONS LAST GENERATED dicyclomine 10 mg capsule?10 mg PO TID PRN 30 caps 1RF 30 days. Jayesh Kaminski 03/07/24 10:06 (Transmitted) Pt taking medication PRN without any difficulties. Pt does report however, that she did take a double dose and will take the double dose depending on her current condition as it seems to be more helpful. Relevant Flags or Indicators ? Requires [employer]? N Silvano presents in office today for a scheduled 2 mos FUV. CC; No recent labs, diagnostics Relevant GI Sx as reported per pt? Hx of any recent surgeries? Nothing since last visit. [employer] Required: No Accompanied by: Significant Other Allergies No Known Allergies Allergy (Verified 05/01/25 11:14) Medication List - Last Reconciled 05/09/24 by Jayesh Kaminski MD albuterol sulfate 90 mcg/actuation (Ventolin HFA) inhalation atorvastatin 20 mg PO DAILY cholecalciferol (vitamin D3) 1,250 mcg PO QWEEK dicyclomine 10 mg PO TID PRN [address] (Nexium Packet) 40 mg PO DAILY estradiol 0.01%(0.1mg/gram) 1 appful vaginal DAILY fluticasone prp-sod.chl,bicarb 50 mcg- 0.9 % sprays intranasal .twice a day levothyroxine 75 mcg PO DAILY linaclotide (Linzess) 145 mcg PO QAM 30 days multivitamin 1 tab PO DAILY ondansetron 4 mg PO Q8H PRN 30 days sennosides-docusate sodium 8.6-50 mg (Senexon-S) 2 tabs PO BEDTIME sucralfate (Carafate) 10 mL PO BID 30 days HPI HPI Constipation: Details: GI clinic visit for this 53 YF for FU evaluation of GERD with atypical chest pain and constipation. Pt was referred by Dr Gladys Daigle, [facility], [facility], [address], 3rd floor, [facility] [address] ([phone]) TODAY'S VISIT: Pt is accompanied by her Pt reports taking medication PRN without any difficulties. Pt does report however, that she did take a double dose and will take the double dose depending on her current condition as it seems to be more helpful. Pt notes she is feeling better Denies any change in symptoms Taking Nexium packet 40 mg every morning and Gaviscon prn every other day to every 3 days. Continues to have constipatiuon and advised to increase Linzess to 290 mg daily and Senna 1 capsule at night. Complains of intermittent nausea and reports a good appetite and denies wt loss PAST VISITS: Denies any problems after the colonoscopy. Has been taking Esomeprazole 40 mg once a day with partial relief of symptoms. Also has episodes of nausea and vomiting despite taking antiemetics She has been taking Omeprazole 20 mg twice a day for the past few days with some improvement in symptoms Famotidine was not helpful and she stopped taking it. Patient cc: N/V on and off, acid reflex with burning sensation, abdominal pain with bloating, constipation , difficulty swallowing, and dizziness come and go. Patient cc: N/V, abdominal pain/bloating, acid reflex with burning sensation, constipation, swallowing difficulty with solid and liquid. Silvano presents in the office as a new patient for constipation and chest pains. CC: Pains in the chest, not sure if it is acid reflux. She takes omeprazole and it seems to help her. Pt complains of intermittent chest pain - sometimes daily. Pain feels like pressure - sometimes associated with nausea Denies association of chest pain with exertion or association with SOB, dizziness or palpitations Denies association with specific foods. Pain can last for hours and resolves Tried Omeprazole once a day for a month without improvement in symptoms Intermittent dysphagia with solids and liquids in the cervical area - resolves with drinking water. Chronic constipation x years. Has a BM every other day - hard stools with straining. Intermittent rectal bleeding - attributes to hemorrhoids Colonoscopy at [facility] in 2019. Patient denies heartburn, change in appetite or weight. Never had an EGD, Colonoscopy at [facility] in 2019 Patient denies major cardiac or pulmonary problems, loud snoring or sleep apnea Denies problems with anesthesia in the past. Denies being on chronic anticoagulation. Patient denies known family history of colon polyps, colon cancer or other GI malignancies. Brother has GERD. and has 3 children Originally from [place] [facility] [place]: Outside labs from 02/2022 were reviewed - Normal CBC, Chem Panel and elevated TSH 9.17 with normal Free T4 IMAGING STUDIES: 11/15/23 BARIUM SWALLOW SHOWED: 1. Small type I hiatal hernia. 2. Moderate to severe esophageal reflux. 3. Granular mucosa of the distal esophagus, query mild reflux esophagitis. 4. Esophageal dysmotility. 5. Trace laryngeal penetration. No aspiration identified. 6. Thickened appearance of the gastric rugal folds that likely represents gastritis. ENDOSCOPIC STUDIES: 12/25/23 COLONOSCOPY SHOWED: Two small and one medium sized polyps were removed Moderate diverticulosis seen in the sigmoid colon Moderate hemorrhoids on retroflexed exam. Plan: Repeat Colonoscopy in 3 years if polyps are adenomatous and 5 years if polyps are hyperplastic (due to a history of adenomatous colon polyps). Above findings were reviewed with the patient and relevant handouts were given and the discharge area. BIOPSIES SHOWED: A. Colon, ascending at 80 cm, polypectomy: Fragments of sessile serrated lesion/polyp; negative for cytologic dysplasia. B. Colon, ascending, polypectomy: Tubular adenoma; negative for high-grade dysplasia or carcinoma. C. Rectum, polypectomy: Fragments of tubular adenoma; negative for high-grade dysplasia or carcinoma. 12/04/23 EGD SHOWED: ESOPHAGUS: Small hiatal hernia with minimal esophagitis at GE junction STOMACH: Moderate diffuse gastritis - biopsies obtained from the gastric antrum and body.. DUODENUM: Multiple 3-4 mm nodules in the roof of proximal bulb - likely hyperplasia of Portia's glands. Prominent duodenal papilla - biopsied. Normal mucosa in the descending duodenum - biopsies were obtained to check for celiac sprue. Plan: Above findings were reviewed with the patient and relevant handouts were given and the discharge area. BIOPSIES SHOWED: A. Small bowel, biopsy: Small intestinal mucosa within normal limits; negative for celiac disease. B. Duodenum, papilla, biopsy: Mixed small intestinal and foveolar mucosa with smooth muscle, consistent with papilla sampling; negative for dysplasia or malignancy. C. 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 D. Stomach, antrum, biopsy: Antral-type mucosa with moderate chronic inactive inflammation; no Helicobacter organisms seen. E. Stomach, body, biopsy: Oxyntic mucosa with mild chronic inactive inflammation; no Helicobacter organisms seen. PFSH Medical History Asthma Hypothyroid Surgical History History of esophagogastroduodenoscopy (EGD) Hx of colonoscopy Social History Household Members: Family Alcohol intake: never Patient Tobacco Use Status: Never used Tobacco Review of Systems Const All systems reviewed & are unremarkable except as noted in HPI and below Physical Exam Vital Signs: Last Vital Signs Pulse 64 05/09/24 12:22 BP 124/78 05/09/24 12:22 Pulse Ox 99 05/09/24 12:22 Oxygen Delivery Method Room Air 05/09/24 12:22 BMI result Body Mass Index 23.9 Const General: healthy appearing and no acute distress Nutritional Appearance: average body habitus Orientation/consciousness: patient oriented x3 Limitations: language barrier HEENT Head: Yes normal to inspection Ears: hearing grossly normal bilaterally Eyes Sclerae: sclerae normal Pupils: Equal, round and reactive pupils present Neck Neck: Yes normal visual inspection Chest Chest palpation & inspection: normal inspection of the chest Resp Effort & Inspection: normal respiratory effort Auscultation: clear to auscultation bilaterally Cardio Palpation: normal PMI Rate: regular rate Rhythm: regular rhythm Heart sounds: S1 normal heart sound present, S2 normal heart sound present and no murmurs GI Palpation (GI): Soft to palpation, nontender and No hepatosplenomegaly present Auscultation: normal bowel sounds Rectal Exam - Female: deferred Skin General skin exam: no rashes or lesions noted Neuro General: patient oriented x3, gait normal and moves all extremities Cranial nerves: Yes Equal, round and reactive pupils present Psych Appearance: grossly normal Mental Status: mental status grossly normal Assessment & Plan Assessment & Plan (1) GERD (gastroesophageal reflux disease): Code(s): K21.9 - Gastro-esophageal reflux disease without esophagitis Category: Medical (2) History of adenomatous polyp of colon: Comment: 12/25/23 COLONOSCOPY SHOWED: Two small and one medium sized adenomatous polyps were removed Plan: Repeat Colonoscopy in 3 years Code(s): Z86.010 - Personal history of colon polyps Category: Medical (3) Chronic constipation: Code(s): K59.09 - Other constipation Category: Medical (4) Esophageal spasm: Code(s): K22.4 - Dyskinesia of esophagus Category: Medical Plan 53 YF with intermittent chest pain - sometimes daily. Tried Omeprazole once a day for a month without improvement in symptoms Intermittent dysphagia with solids and liquids in the cervical area - resolves with drinking water. Chronic constipation x years. Has a BM every other day - hard stools with straining. Intermittent rectal bleeding - attributes to hemorrhoids Colonoscopy at [facility] in 2019. Chest pain is likely due to GERD with esophageal spasm Pt advised to schedule a barium swallow Start Famotidine for GERD and Senna plus for constipation EGD and Colonoscopy were performed and the results as noted above 01/18/24 Patient reports N/V, abdominal pain/bloating, acid reflex with burning sensation, constipation, swallowing difficulty with solid and liquid. Denies any problems after the colonoscopy. Has been taking Esomeprazole 40 mg once a day with partial relief of symptoms. Also has episodes of nausea and vomiting despite taking antiemetics Pt advised to continie esomeprazole and add sucralfate twice daily Linzess 145 mcg daily for constipation 03/07/24 Patient reports N/V on and off, acid reflex with burning sensation, abdominal pain with bloating, constipation , difficulty swallowing, and dizziness come and go. Denies any change in symptoms Taking Nexium packet 40 mg every morning and Gaviscon prn every other day to every 3 days. Complains of intermittent nausea and reports a good appetite and denies wt loss Dicyclomine 10 mg times daily as needed for atypical chest pain. 05/09/24 Pt notes she is feeling better Denies any change in symptoms Taking Nexium packet 40 mg every morning and Gaviscon prn every other day to every 3 days. Continues to have constipation and advised to increase Linzess to 290 mg daily and Senna 1 capsule at night. Complains of intermittent nausea and reports a good appetite and denies wt loss FU in 3 months Medications: Changed From linaclotide 145 mcg PO QAM 30 days 30 caps 3RF K59.09 - Other constipation To linaclotide (Linzess) 290 mcg (2 x 145 mcg) PO QAM 60 caps 3RF 30 days K59.09 - Other constipation From dicyclomine 10 mg PO TID 30 days PRN 30 caps 1RF atypical chest pain R10.13 - Epigastric pain, K22.4 - Dyskinesia of esophagus To dicyclomine 20 mg (2 x 10 mg) PO TID PRN 100 caps 1RF atypical chest pain 90 days R10.13 - Epigastric pain, K22.4 - Dyskinesia of esophagus Coding Level of Care Code Est Pt Level 4 (25538) Diagnoses GERD (gastroesophageal reflux disease) K21.9 History of adenomatous polyp of colon Z86.010 Chronic constipation K59.09 Esophageal spasm K22.4 Time Spent (min) 20
[2024-05-09 12:22] VITALS: BP 124/78; PULSE 64; O2SAT 99; BMI 23.9
== END 2024-05-09 13:28 | disposition home or self-care (01) ==
PROVIDERS: PCP Internal Medicine; Visit Provider Internal Medicine Gastroenterology
DX: K21.9 Gastro-esophageal reflux disease without esophagitis (principal); Z86.0100 Personal history of colon polyps, unspecified; K59.09 Other constipation; K22.4 Dyskinesia of esophagus
CPT/HCPCS: 99499

== ENCOUNTER → 2024-05-09 12:14 | Outpatient (BNVA) | payer OTHER, SELFPAY | PROVIDERS: PCP Internal Medicine; Visit Provider Internal Medicine Gastroenterology ==

== ENCOUNTER 2024-08-27 12:37 | Outpatient (AMB) | payer OTHER, SELFPAY ==
--- NOTE | 2024-08-27 12:50 | MHC.OFFVIS ---
Vital Signs 08/27/24 12:54 Height 5 ft 2 in Weight 134 lb 7.712 oz BMI 24.6 BP 117/82 Blood Pressure Location Lt brachial Position Sitting Pulse 69 Intake Visit Reasons: chronic constipation Intake Note: Patient 3 month follow up for chronic constipation. Patient cc: Patient c/o constipation and heartburn. Denies other GI symptoms. Auto Pain[employer] Required: No Allergies No Known Allergies Allergy (Verified 08/27/24 13:02) Medication List - Last Reconciled 08/27/24 by Jayesh Kaminski MD albuterol sulfate 90 mcg/actuation (Ventolin HFA) inhalation atorvastatin 20 mg PO DAILY calcium carbonate-vitamin D3 600 mg-10 mcg (400 unit) 1 tab PO DAILY dicyclomine 20 mg (2 x 10 mg) PO TID PRN [address] (Nexium Packet) 40 mg PO DAILY estradiol 0.01%(0.1mg/gram) 1 appful vaginal DAILY fluticasone prp-sod.chl,bicarb 50 mcg- 0.9 % sprays intranasal .twice a day PRN levothyroxine 75 mcg PO DAILY linaclotide (Linzess) 290 mcg (2 x 145 mcg) PO QAM 30 days ondansetron 4 mg PO Q8H PRN 30 days sennosides-docusate sodium 8.6-50 mg (Senexon-S) 2 tabs PO BEDTIME 90 days HPI HPI chronic constipation: Details: GI clinic visit for this 54 YF for FU evaluation of GERD with atypical chest pain and constipation. Pt was referred by Dr Gladys Daigle, [facility], [facility], [address], 3[address], [facility] [address] ([phone]) TODAY'S VISIT: Patient cc: Patient c/o constipation and heartburn. Denies other GI symptoms. Taking Nexium 3 times a week with adequate control of symptoms Taking Linzess every morning and senna at night. She continues to have constipation - still has to strain Stool are sometimes soft and sometimes hard PAST VISITS: Reports she is feeling better Denies any change in symptoms Taking Nexium packet 40 mg every morning and Gaviscon prn every other day to every 3 days. Continues to have constipation and advised to increase Linzess to 290 mg daily and Senna 1 capsule at night. Complains of intermittent nausea and reports a good appetite and denies wt loss Denies any problems after the colonoscopy. Has been taking Esomeprazole 40 mg once a day with partial relief of symptoms. Also has episodes of nausea and vomiting despite taking antiemetics Pt is accompanied by her She has been taking Omeprazole 20 mg twice a day for the past few days with some improvement in symptoms Famotidine was not helpful and she stopped taking it. Pt taking medication PRN without any difficulties. Pt does report however, that she did take a double dose and will take the double dose depending on her current condition as it seems to be more helpful. Patient cc: N/V on and off, acid reflex with burning sensation, abdominal pain with bloating, constipation , difficulty swallowing, and dizziness come and go. Patient cc: N/V, abdominal pain/bloating, acid reflex with burning sensation, constipation, swallowing difficulty with solid and liquid. Silvano presents in the office as a new patient for constipation and chest pains. CC: Pains in the chest, not sure if it is acid reflux. She takes omeprazole and it seems to help her. Pt complains of intermittent chest pain - sometimes daily. Pain feels like pressure - sometimes associated with nausea Denies association of chest pain with exertion or association with SOB, dizziness or palpitations Denies association with specific foods. Pain can last for hours and resolves Tried Omeprazole once a day for a month without improvement in symptoms Intermittent dysphagia with solids and liquids in the cervical area - resolves with drinking water. Chronic constipation x years. Has a BM every other day - hard stools with straining. Intermittent rectal bleeding - attributes to hemorrhoids Colonoscopy at [facility] in 2019. Patient denies heartburn, change in appetite or weight. Never had an EGD, Colonoscopy at [facility] in 2019 Patient denies major cardiac or pulmonary problems, loud snoring or sleep apnea Denies problems with anesthesia in the past. Denies being on chronic anticoagulation. Patient denies known family history of colon polyps, colon cancer or other GI malignancies. Brother has GERD. and has 3 children Originally from [place] [facility] [place]: Outside labs from 02/2022 were reviewed - Normal CBC, Chem Panel and elevated TSH 9.17 with normal Free T4 IMAGING STUDIES: 11/15/23 BARIUM SWALLOW SHOWED: 1. Small type I hiatal hernia. 2. Moderate to severe esophageal reflux. 3. Granular mucosa of the distal esophagus, query mild reflux esophagitis. 4. Esophageal dysmotility. 5. Trace laryngeal penetration. No aspiration identified. 6. Thickened appearance of the gastric rugal folds that likely represents gastritis. ENDOSCOPIC STUDIES: 12/25/23 COLONOSCOPY SHOWED: Two small and one medium sized polyps were removed Moderate diverticulosis seen in the sigmoid colon Moderate hemorrhoids on retroflexed exam. Plan: Repeat Colonoscopy in 3 years if polyps are adenomatous and 5 years if polyps are hyperplastic (due to a history of adenomatous colon polyps). Above findings were reviewed with the patient and relevant handouts were given and the discharge area. BIOPSIES SHOWED: A. Colon, ascending at 80 cm, polypectomy: Fragments of sessile serrated lesion/polyp; negative for cytologic dysplasia. B. Colon, ascending, polypectomy: Tubular adenoma; negative for high-grade dysplasia or carcinoma. C. Rectum, polypectomy: Fragments of tubular adenoma; negative for high-grade dysplasia or carcinoma. 12/04/23 EGD SHOWED: ESOPHAGUS: Small hiatal hernia with minimal esophagitis at GE junction STOMACH: Moderate diffuse gastritis - biopsies obtained from the gastric antrum and body.. DUODENUM: Multiple 3-4 mm nodules in the roof of proximal bulb - likely hyperplasia of Portia's glands. Prominent duodenal papilla - biopsied. Normal mucosa in the descending duodenum - biopsies were obtained to check for celiac sprue. Plan: Above findings were reviewed with the patient and relevant handouts were given and the discharge area. BIOPSIES SHOWED: A. Small bowel, biopsy: Small intestinal mucosa within normal limits; negative for celiac disease. B. Duodenum, papilla, biopsy: Mixed small intestinal and foveolar mucosa with smooth muscle, consistent with papilla sampling; negative for dysplasia or malignancy. C. 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 D. Stomach, antrum, biopsy: Antral-type mucosa with moderate chronic inactive inflammation; no Helicobacter organisms seen. E. Stomach, body, biopsy: Oxyntic mucosa with mild chronic inactive inflammation; no Helicobacter organisms seen. [facility] Medical History Asthma Hypothyroid Surgical History History of esophagogastroduodenoscopy (EGD) Hx of colonoscopy Social History Household Members: Family Alcohol intake: never Patient Tobacco Use Status: Never used Tobacco Review of Systems Const All systems reviewed & are unremarkable except as noted in HPI and below Physical Exam Vital Signs: Last Vital Signs Pulse 69 08/27/24 12:54 BP 117/82 08/27/24 12:54 BMI result Body Mass Index 24.6 Const General: healthy appearing and no acute distress Nutritional Appearance: average body habitus Orientation/consciousness: patient oriented x3 Limitations: language barrier HEENT Head: Yes normal to inspection Ears: hearing grossly normal bilaterally Eyes Sclerae: sclerae normal Pupils: Equal, round and reactive pupils present Neck Neck: Yes normal visual inspection Chest Chest palpation & inspection: normal inspection of the chest Resp Effort & Inspection: normal respiratory effort Auscultation: clear to auscultation bilaterally Cardio Palpation: normal PMI Rate: regular rate Rhythm: regular rhythm Heart sounds: S1 normal heart sound present, S2 normal heart sound present and no murmurs GI Palpation (GI): Soft to palpation, nontender and No hepatosplenomegaly present Auscultation: normal bowel sounds Rectal Exam - Female: deferred Skin General skin exam: no rashes or lesions noted Neuro General: patient oriented x3, gait normal and moves all extremities Cranial nerves: Yes Equal, round and reactive pupils present Psych Appearance: grossly normal Mental Status: mental status grossly normal Assessment & Plan Assessment & Plan (1) Chronic constipation: Code(s): K59.09 - Other constipation Category: Medical (2) History of adenomatous polyp of colon: Comment: 12/25/23 COLONOSCOPY SHOWED: Two small and one medium sized adenomatous polyps were removed Plan: Repeat Colonoscopy in 3 years Code(s): Z86.010 - Personal history of colon polyps Category: Medical (3) GERD (gastroesophageal reflux disease): Code(s): K21.9 - Gastro-esophageal reflux disease without esophagitis Category: Medical (4) Esophageal spasm: Code(s): K22.4 - Dyskinesia of esophagus Category: Medical Plan 54 YF with intermittent chest pain - sometimes daily. Tried Omeprazole once a day for a month without improvement in symptoms Intermittent dysphagia with solids and liquids in the cervical area - resolves with drinking water. Chronic constipation x years. Has a BM every other day - hard stools with straining. Intermittent rectal bleeding - attributes to hemorrhoids Colonoscopy at [facility] [place] in 2019. Chest pain is likely due to GERD with esophageal spasm Pt advised to schedule a barium swallow Start Famotidine for GERD and Senna plus for constipation EGD and Colonoscopy were performed and the results as noted above 08/27/24 Taking Nexium 3 times a week with adequate control of symptoms Taking Linzess every morning and senna at night and continues to have constipation - still has to strain Stool are sometimes soft and sometimes hard Pt advised to start Lubiprostone 8 mcg twice daily and stop Linzess Referral sent to CD for anorectal manometry with balloon expulsion test FU in 4 months Orders: Referrals Gastroenterology Referral K59.09 - Other constipation Medications: New lubiprostone (Amitiza) 8 mcg PO BID 60 caps 3RF 30 days K59.09 - Other constipation Coding Level of Care Code Est Pt Level 3 (14506) Diagnoses Chronic constipation K59.09 History of adenomatous polyp of colon Z86.010 GERD (gastroesophageal reflux disease) K21.9 Esophageal spasm K22.4 Time Spent (min) 18
[2024-08-27 12:54] VITALS: BP 117/82; PULSE 69; BMI 24.6
--- OUTSIDE RECORDS SUMMARY | 2024-08-27 15:41 | XMS_ITS | Clinical Summary ---
Author Organization [facility] Address [address] [place] [address] Care Team Providers Care Salesperson Sheet Music Name Role Phone Gladys Daigle Primary Care Provider Allergies No known active allergies Medications levothyroxine (SYNTHROID, LEVOTHROID) 75 mcg tablet TAKE 1 TABLET BY MOUTH 6 DAYS PER WEEK 1 Active fluticasone propionate (FLONASE) 50 mcg/actuation nasal spray Administer 1 spray into each nostril 2 times a day. 0 Active Flovent HFA 110 mcg/actuation inhaler Inhale 2 puffs by mouth 2 times a day. 1 Active albuterol (PROAIR HFA,VENTOLIN HFA) 90 mcg inhaler Inhale 1-2 puffs by mouth every 6 hours as needed for wheezing or shortness of breath. Use with spacer. Active ciclopirox (LOPROX) 0.77 % creamIndicatio ns:Tinea cruris Mix 1:1 with hydrocortisone cream in palm and apply to affected area in groin twice daily for 2 weeks, then once daily x 1 week, then stop HC cream. Use ciclopirox cream daily thereafter. 90 g 5 2 Active hydrocortisone 2.5% creamIndicatio ns:Tinea cruris Apply topically to the affected area 2 times a day. Mix 1:1 with ciclopirox 0.77 % cream in palm and apply twice daily to rash in right groin for 2 weeks, then once daily for 1 week, then stop using. 454 g 2 Active atorvastatin (LIPITOR) 20 mg tablet Take 20 mg by mouth once a day. 3 Active estradioL (ESTRACE) 0.01 % (0.1 mg/gram) vaginal cream SMARTSI Gram(s) Vaginal 3 Times a Week 3 Active clotrimazole (LOTRIMIN) 1% creamIndicatio ns:Tinea cruris For redness, mix 1:1 with alclometasone and apply once daily to affected areas. Once redness and itch resolves, use only clotrimazole daily on affected areas. 45 g 5 3 Active alclometasone (ACLOVATE) 0.05 % creamIndicatio ns:Tinea cruris Mix 1:1 with clotrimazole and apply to red, itchy areas on skin daily. 45 g 2 3 Active ketoconazole (NIZORAL) 2% shampooIndicat ions:Seborrhei c dermatitis Apply topically to the affected area 2 times a week. Apply to damp scalp, lather, leave on 5 to 10 minutes, and rinse 120 mL 5 3 Active fluocinonide (LIDEX) 0.05% solutionIndica tions:Seborrhe ic dermatitis Apply to itchy area on scalp once nightly as needed. 180 mL 3 3 Active Active Problems No known active problems Family History Medical History Relation Name Comments Bladder Cancer Neg Hx Kidney cancer Neg Hx Prostate cancer Neg Hx Urolithiasis Neg Hx Social History Tobacco Use Types Packs/Day Years Used Date Smoking Tobacco: Never Smokeless Tobacco: Never Alcohol Use Standard Drinks/Week Comments Never 0 (1 standard drink = 0.6 oz pur e alcohol) Comments Unknown Sex and Gender Information Value Date Recorded Sex Assigned at Female 06/18/2021 10:09 AM EST Legal Sex Female 11:33 AM EST Gender Identity Female 06/18/2021 10:09 AM EST Sexual Orientation Straight 06/18/2021 10 :09 AM EST Last Filed Vital Signs Vital Sign Reading Time Taken Comments Blood Pressure 122/75 05/06/2021 2:02 PM EST Pulse 67 05/06/2021 2:02 PM EST Temperature - - Respiratory Rate - - Oxygen Saturation - - Inhaled Oxygen Concentration - - Weight 68 kg (149 lb 14.6 oz) 05/06/2022 3:10 PM EST Height 162.6 cm (5' 4 ) 05/06/2022 3:10 PM EST Body Mass Index 25.73 05/06/2022 3:10 PM EST Plan of Treatment Health Maintenance Due Date Last Done Comments Cervical Cancer Screening 1968 Cologuard 1968 Colon Cancer Screening 1968 Colonoscopy 1968 FOBT / Fit Test 1968 HIV Screening 1968 HPV and Pap Smear 1968 Hepatitis C Screening 1968 Pap Smear 1968 Sigmoidoscopy 1968 Hepatitis B Vaccines (1 of 3 - 19+ 3-dose series) 1987 Mammogram 2008 Zoster Vaccines (2 of 3) 10/15/2019 08/20/2019 Pneumococcal Vaccine: 50+ Ye ars (2 of 2 - PCV) 08/20/2020 08/20/2019 COVID-19 Vaccine (4 - 2023-2 5 season) 2024 06/15/2021, 10/24/2020, 10/03/2020 Influenza Vaccine (#1) 2024 9, 03/29/2017, 03/29/2017, Additional history exists Alcohol/Substance Use Screening 06/26/2024 Depression Screening and Follow-Up 06/26/2024 Social Drivers of Health Dilia ual Screening 06/26/2024 DTaP,Tdap,and Td Vaccines (2 - Td or Tdap) 01/31/2028 01/30/2018 RSV Vaccine (60+ years old a nd patients) (1 - 1-dose 75+ series) 2043 Insurance [facility] MEDICAID Care Teams Salesperson Sheet Music Relationship Specialty Start Date End Date Gladys Daigle [facility] [address] [place] [address] PCP - General Internal Medicine 08/12/20
--- OUTSIDE RECORDS SUMMARY | 2024-08-27 15:41 | XMS_ITS | Referral Summary ---
Author Organization [facility] Address [address] [place] [address] Care Team Providers Care Gift Shop Assistant Name Role Phone Gladys Daigle Primary Care [...] Active Active Problems No known active problems Social History Tobacco Use Types Packs/Day Years [...] 05/06/2022 3:10 PM EST Plan of Treatment Not on file Insurance [facility] MEDICAID Care Teams Gift Shop Assistant Relationship Specialty Start Date End Date Gladys Daigle [facility] [address] [place] [address] PCP - General Internal Medicine 08/12/20
== END 2024-08-27 13:39 | disposition home or self-care (01) ==
PROVIDERS: PCP Internal Medicine; Visit Provider Internal Medicine Gastroenterology
DX: K59.09 Other constipation (principal); Z86.0100 Personal history of colon polyps, unspecified; K21.9 Gastro-esophageal reflux disease without esophagitis; K22.4 Dyskinesia of esophagus
CPT/HCPCS: 99213

== ENCOUNTER → 2024-08-27 12:37 | Outpatient (BNVA) | payer OTHER, SELFPAY | PROVIDERS: PCP Internal Medicine; Visit Provider Internal Medicine Gastroenterology | DX: K59.09 Other constipation (principal); K21.9 Gastro-esophageal reflux disease without esophagitis; K22.4 Dyskinesia of esophagus; Z86.0101 Personal history of adenomatous and serrated colon polyps | CPT/HCPCS: 99212 ==

== ENCOUNTER 2024-12-26 11:56 | Outpatient (AMB) | payer OTHER, SELFPAY ==
--- NOTE | 2024-12-26 12:10 | MHC.OFFVIS ---
Vital Signs 12/26/24 12:11 Height 5 ft 2 in Weight 135 lb BMI 24.7 BP 101/59 L Blood Pressure Location Lt brachial Position Sitting Pulse 68 Pulse Oximetry (%) 97 Oxygen Delivery Method Room Air Intake Visit Reasons: 4 mo Follow up Intake Note: Patient follow up for chronic constipation. Patient cc: chronic constipation and some swallowing with liquid and solid food. Anthropological Linguist Required: No Accompanied by: Family/Other Allergies No Known Allergies Allergy (Verified 12/26/24 12:10) Medication List - Last Reconciled 12/26/24 by Jayesh Kaminski MD albuterol sulfate 90 mcg/actuation (Ventolin HFA) inhalation atorvastatin 20 mg PO DAILY calcium carbonate-vitamin D3 600 mg-10 mcg (400 unit) 1 tab PO DAILY dicyclomine 20 mg (2 x 10 mg) PO TID PRN [address] (Nexium Packet) 40 mg PO DAILY estradiol 0.01%(0.1mg/gram) 1 appful vaginal DAILY fluticasone prp-sod.chl,bicarb 50 mcg- 0.9 % sprays intranasal .twice a day PRN levothyroxine 75 mcg PO DAILY lubiprostone (Amitiza) 8 mcg PO BID 30 days ondansetron 4 mg PO Q8H PRN 30 days sennosides-docusate sodium 8.6-50 mg (Senexon-S) 2 tabs PO BEDTIME 90 days HPI HPI 4 mo Follow up: Details: GI clinic visit for this 54 YF for FU evaluation of GERD with atypical chest pain and constipation. Pt was referred by Dr Gladys Daigle, [facility], [facility], [address], [address], [facility] [address] ([phone]) TODAY'S VISIT: Patient cc: Patient cc: chronic constipation and some swallowing with liquid and solid food. Taking Nexium once a week with adequate control of GERD symptoms. Continues to have 1 BM a day associated with straining and hard stools Taking Nexium 3 times a week with adequate control of symptoms Taking Linzess every morning and senna at night. She continues to have constipation - still has to strain Stool are sometimes soft and sometimes hard PAST VISITS: Reports she is feeling better Denies any change in symptoms Taking Nexium packet 40 mg every morning and Gaviscon prn every other day to every 3 days. Continues to have constipation and advised to increase Linzess to 290 mg daily and Senna 1 capsule at night. Complains of intermittent nausea and reports a good appetite and denies wt loss Denies any problems after the colonoscopy. Has been taking Esomeprazole 40 mg once a day with partial relief of symptoms. Also has episodes of nausea and vomiting despite taking antiemetics Pt is accompanied by her She has been taking Omeprazole 20 mg twice a day for the past few days with some improvement in symptoms Famotidine was not helpful and she stopped taking it. Pt taking medication PRN without any difficulties. Pt does report however, that she did take a double dose and will take the double dose depending on her current condition as it seems to be more helpful. Patient cc: N/V on and off, acid reflex with burning sensation, abdominal pain with bloating, constipation , difficulty swallowing, and dizziness come and go. Patient cc: N/V, abdominal pain/bloating, acid reflex with burning sensation, constipation, swallowing difficulty with solid and liquid. Silvano presents in the office as a new patient for constipation and chest pains. CC: Pains in the chest, not sure if it is acid reflux. She takes omeprazole and it seems to help her. Pt complains of intermittent chest pain - sometimes daily. Pain feels like pressure - sometimes associated with nausea Denies association of chest pain with exertion or association with SOB, dizziness or palpitations Denies association with specific foods. Pain can last for hours and resolves Tried Omeprazole once a day for a month without improvement in symptoms Intermittent dysphagia with solids and liquids in the cervical area - resolves with drinking water. Chronic constipation x years. Has a BM every other day - hard stools with straining. Intermittent rectal bleeding - attributes to hemorrhoids [place] [facility] [place] Patient denies heartburn, change in appetite or weight. Never had an EGD, [place] [facility] [place] Patient denies major cardiac or pulmonary problems, loud snoring or sleep apnea Denies problems with anesthesia in the past. Denies being on chronic anticoagulation. Patient denies known family history of colon polyps, colon cancer or other GI malignancies. Brother has GERD. and has 3 children Originally from [place] [employer]: Outside labs from 02/2022 were reviewed - Normal CBC, Chem Panel and elevated TSH 9.17 with normal Free T4 IMAGING STUDIES: 11/15/23 BARIUM SWALLOW SHOWED: 1. Small type I hiatal hernia. 2. Moderate to severe esophageal reflux. 3. Granular mucosa of the distal esophagus, query mild reflux esophagitis. 4. Esophageal dysmotility. 5. Trace laryngeal penetration. No aspiration identified. 6. Thickened appearance of the gastric rugal folds that likely represents gastritis. ENDOSCOPIC STUDIES: 12/25/23 COLONOSCOPY SHOWED: Two small and one medium sized polyps were removed Moderate diverticulosis seen in the sigmoid colon Moderate hemorrhoids on retroflexed exam. Plan: Repeat Colonoscopy in 3 years if polyps are adenomatous and 5 years if polyps are hyperplastic (due to a history of adenomatous colon polyps). Above findings were reviewed with the patient and relevant handouts were given and the discharge area. BIOPSIES SHOWED: A. Colon, ascending at 80 cm, polypectomy: Fragments of sessile serrated lesion/polyp; negative for cytologic dysplasia. B. Colon, ascending, polypectomy: Tubular adenoma; negative for high-grade dysplasia or carcinoma. C. Rectum, polypectomy: Fragments of tubular adenoma; negative for high-grade dysplasia or carcinoma. 12/04/23 EGD SHOWED: ESOPHAGUS: Small hiatal hernia with minimal esophagitis at GE junction STOMACH: Moderate diffuse gastritis - biopsies obtained from the gastric antrum and body.. DUODENUM: Multiple 3-4 mm nodules in the roof of proximal bulb - likely hyperplasia of Portia's glands. Prominent duodenal papilla - biopsied. Normal mucosa in the descending duodenum - biopsies were obtained to check for celiac sprue. Plan: Above findings were reviewed with the patient and relevant handouts were given and the discharge area. BIOPSIES SHOWED: A. Small bowel, biopsy: Small intestinal mucosa within normal limits; negative for celiac disease. B. Duodenum, papilla, biopsy: Mixed small intestinal and foveolar mucosa with smooth muscle, consistent with papilla sampling; negative for dysplasia or malignancy. C. 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 D. Stomach, antrum, biopsy: Antral-type mucosa with moderate chronic inactive inflammation; no Helicobacter organisms seen. E. Stomach, body, biopsy: Oxyntic mucosa with mild chronic inactive inflammation; no Helicobacter organisms seen PFSH Medical History Asthma Hypothyroid Surgical History History of esophagogastroduodenoscopy (EGD) Hx of colonoscopy Social History Household Members: Family Alcohol intake: never Patient Tobacco Use Status: Never used Tobacco Review of Systems Const All systems reviewed & are unremarkable except as noted in HPI and below Physical Exam Vital Signs: Last Vital Signs Pulse 68 12/26/24 12:11 BP 101/59 L 12/26/24 12:11 Pulse Ox 97 12/26/24 12:11 Oxygen Delivery Method Room Air 12/26/24 12:11 BMI result Body Mass Index 24.7 Const General: healthy appearing and no acute distress Nutritional Appearance: average body habitus Orientation/consciousness: patient oriented x3 Limitations: language barrier HEENT Head: Yes normal to inspection Ears: hearing grossly normal bilaterally Eyes Sclerae: sclerae normal Pupils: Equal, round and reactive pupils present Neck Neck: Yes normal visual inspection Chest Chest palpation & inspection: normal inspection of the chest Resp Effort & Inspection: normal respiratory effort Auscultation: clear to auscultation bilaterally Cardio Palpation: normal PMI Rate: regular rate Rhythm: regular rhythm Heart sounds: S1 normal heart sound present, S2 normal heart sound present and no murmurs GI Palpation (GI): Soft to palpation, nontender and No hepatosplenomegaly present Auscultation: normal bowel sounds Rectal Exam - Female: deferred Skin General skin exam: no rashes or lesions noted Neuro General: patient oriented x3, gait normal and moves all extremities Cranial nerves: Yes Equal, round and reactive pupils present Psych Appearance: grossly normal Mental Status: mental status grossly normal Assessment & Plan Assessment & Plan (1) Chronic constipation: Code(s): K59.09 - Other constipation Category: Medical (2) History of adenomatous polyp of colon: Comment: 12/25/23 COLONOSCOPY SHOWED: Two small and one medium sized adenomatous polyps were removed Plan: Repeat Colonoscopy in 3 years Code(s): Z86.010 - Personal history of colon polyps Category: Medical (3) GERD (gastroesophageal reflux disease): Code(s): K21.9 - Gastro-esophageal reflux disease without esophagitis Category: Medical (4) Esophageal spasm: Code(s): K22.4 - Dyskinesia of esophagus Category: Medical Plan 54 YF with intermittent chest pain - sometimes daily. Tried Omeprazole once a day for a month without improvement in symptoms Intermittent dysphagia with solids and liquids in the cervical area - resolves with drinking water. Chronic constipation x years. Has a BM every other day - hard stools with straining. Intermittent rectal bleeding - attributes to hemorrhoids [place] [facility] [place] Chest pain is likely due to GERD with esophageal spasm Pt advised to schedule a barium swallow Start Famotidine for GERD and Senna plus for constipation EGD and Colonoscopy were performed and the results as noted above 08/27/24 Taking Nexium 3 times a week with adequate control of symptoms Taking Linzess every morning and senna at night and continues to have constipation - still has to strain Stool are sometimes soft and sometimes hard 12/26/24 Pt advised to start Lubiprostone 8 mcg twice daily and stop Linzess Referral sent to CD for anorectal manometry with balloon expulsion test FU in 4 months Medications: Changed From lubiprostone 8 mcg PO BID 30 days 60 caps 3RF K59.09 - Other constipation To lubiprostone (Amitiza) 16 mcg (2 x 8 mcg) PO BID 360 caps 1RF 90 days K59.09 - Other constipation Coding Level of Care Code Est Pt Level 4 (32651) Diagnoses Chronic constipation K59.09 History of adenomatous polyp of colon Z86.010 GERD (gastroesophageal reflux disease) K21.9 Esophageal spasm K22.4 Time Spent (min) 21
[2024-12-26 12:11] VITALS: BP 101/59; PULSE 68; O2SAT 97; BMI 24.7
--- OUTSIDE RECORDS SUMMARY | 2024-12-26 12:30 | XMS_ITS | Referral Summary ---
Author Organization [facility] Address [address] [place] [address] Care Team Providers Care Occupational Therapy Program Director Name Role Phone Gladys Daigle Primary Care [...] Plan of Treatment Not on file Insurance [facility] MEDICAID Care Teams Occupational Therapy Program Director Relationship Specialty Start Date End Date Gladys Daigle [facility] [address] [place] [address] PCP - General Internal Medicine 08/12/20
== END 2024-12-26 12:49 | disposition home or self-care (01) ==
LOC: HO.HGI 11:57
PROVIDERS: PCP Internal Medicine; Visit Provider Internal Medicine Gastroenterology
DX: K59.09 Other constipation (principal); Z86.0100 Personal history of colon polyps, unspecified; K21.9 Gastro-esophageal reflux disease without esophagitis; K22.4 Dyskinesia of esophagus
CPT/HCPCS: 99499